=== PATIENT | female | born 1945 | race Caucasian/White ===

== ENCOUNTER 2024-12-24 18:21 | Emergency (ER) | payer BC, MEDICARE ==
[~2024-12-24] VITALS: Ht 149.9 cm; Wt 49.9 kg
--- NOTE | 2024-12-24 18:36 | NUR ---
RADHA LEAL AT TRIAGE ROOM ASSESSING PT DURING TRIAGE, MADE AWARE OF HIGH B/P 192/87, NO NEW ORDERS AT THIS TIME
[2024-12-24 18:50] LABS: BASOPHILS # (AUTO) 0.01 K/uL (0.00-0.20); BASOPHILS % (AUTO) 0.2 % (0.0-5.0); HEMATOCRIT 29.8 % (36-48); IMMATURE GRANULOCYTE ABSOLUTE 0.02 K/uL (0-1); LYMPHOCYTES # (AUTO) 1.3 K/uL (1.0-4.8); LYMPHOCYTES % (AUTO) 19.9 % (21.0-51.0); MEAN CORPUSCULAR HEMOGLOBIN 31.3 pg (27.0-33.0); MEAN CORPUSCULAR HGB CONC 33.9 g/dL (32.0-36.0); MEAN CORPUSCULAR VOLUME 92.3 fL (79-99); MONOCYTES # (AUTO) 0.5 K/uL (0.1-1.0); MONOCYTES % (AUTO) 8.4 % (3.0-13.0); NEUTROPHILS # (AUTO) 4.6 K/uL (1.8-7.7); NEUTROPHILS % (AUTO) 71.2 % (40.0-77.0); PLATELET COUNT (AUTO) 379 K/uL (130-400); RED BLOOD CELL COUNT(AUTO) 3.23 MIL/uL (4.00-5.50); RED CELL DISTRIBUTION WIDTH 12.4 % (11.0-15.5); WHITE BLOOD COUNT (AUTO) 6.4 K/uL (4.8-10.8)
[2024-12-24 19:03] LABS: CARBON DIOXIDE 29 mmol/L (21-32); CREATININE 0.8 mg/dL (0.5-1.0); GLOMERULAR FILTR. RATE CALC 75 mL/min (>90); GLUCOSE,RANDOM 94 mg/dL (70-105); SODIUM SERUM 128 mmol/L (136-145); UREA NITROGEN, BLOOD 17 mg/dL (7-18)
[2024-12-24 19:12] LABS: ALCOHOL, BLOOD < 3 mg/dL (0-10)
[2024-12-24 19:13] LABS: CHLORIDE 90 mmol/L (101-111)
[2024-12-24 19:58] VITALS: TEMP 98.5
[2024-12-24 20:01] LABS: APPEARANCE,URINE CLEAR (CLEAR); BILIRUBIN,URINE NEGATIVE (NEGATIVE); COLOR,URINE YELLOW (YELLOW); GLUCOSE, URINE (UA) NEGATIVE (NEGATIVE); KETONES,URINE 5 mg/dL (NEGATIVE); LEUKOCYTE ESTERASE ,URINE 25 Leu/uL (NEGATIVE); NITRATE,URINE NEGATIVE (NEGATIVE); OCCULT BLOOD,URINE NEGATIVE (NEGATIVE); PROTEIN,URINE 20 mg/dL (NEGATIVE); UROBILINOGEN,URINE 0.2 mg/dL (0.2-1.0)
[2024-12-24 20:05] LABS: ADD UA MICROSCOPIC YES
[2024-12-24 20:10] LABS: AMPHET/METH SCREEN,URINE NEGATIVE (NEGATIVE); BARBITURATE SCREEN, URINE NEGATIVE (NEGATIVE); BENZODIAZEPINES SCREEN,URINE NEGATIVE (NEGATIVE); CANNABINOID SCREEN,URINE NEGATIVE (NEGATIVE); COCAINE SCREEN,URINE NEGATIVE (NEGATIVE); OPIATE SCREEN,URINE NEGATIVE (NEGATIVE); PHENCYCLIDINE SCREEN,URINE NEGATIVE (NEGATIVE)
[2024-12-24 20:13] LABS: BACTERIA,URINE RARE /HPF (None Seen); MUCUS,URINE RARE LPF (None Seen); SQUAMOUS EPITHELIAL CELL,UR RARE /HPF (0-2)
--- NOTE | 2024-12-24 20:40 | EKG ---
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
[2024-12-24] MEDS: 0.9%NACL 1000ML 1,000 ML IV ONE (20:51)
[2024-12-24] MEDS: cefTRIAXone 1G VIAL IVPB STA (21:03)
[2024-12-24 21:29] VITALS: BP 142/68; PULSE 67; RESP 16; O2SAT 97
--- NOTE | 2024-12-24 21:37 | ERN ---
ED Note History of Present Illness Stated Complaint: MEDICAL DETOX Chief Complaint: Drug Abuse Time Seen by MD: 18:25 Time Seen by Midlevel: 18:25 Dictation: 79-year-old female presents to the ED for evaluation of possible medical detox. Patient reports seeing to detox from [facility] and alcohol use. Reports she has been taking 1 mg of lorazepam every day for the past 12 years and drinks very infrequently. Patient reports she was not had any child's or alcohol for the past three days. Denies any she has chest pain, shortness for breath, seizures, abdominal pain, nausea, vomiting, diarrhea. Patient requesting help for referral to detox program. Allergies: Coded Allergies: acetaminophen (Unverified Allergy, Unknown, 12/24/24) meperidine (Unverified Allergy, Unknown, 12/24/24) oxycodone (Unverified Allergy, Unknown, 12/24/24) Past Medical History Past Medical History: Hypertension Additional Past Medical Hx: FIBROMYALGIA, INSOMIA Surgical History: Other Surgical History Other: BACK SURGERY X4 RN Note Reviewed/Agreed w/PFSH: Yes Review of System Dictation CONSTITUTIONAL: Negative except for HPI HEAD/FACE: Negative except for HPI EENT: Negative except for HPI RESPIRATORY: Negative except for HPI GASTROINTESTINAL/ABDOMINAL: Negative except for HPI GENITOURINARY: Negative except for HPI MUSCULOSKELETAL: Negative except for HPI INTEGUMENTARY: Negative except for HPI NEUROLOGICAL/PSYCH: Negative except for HPI HEMATOLOGIC/LYMPHATIC: Negative except for HPI All Systems Negative, Except as noted above. 13 point review of systems assessed and all negative except for above. Review of Systems: was completed Initial Vital Sign VS Vital Signs Date Time Temp Pulse Resp B/P (MAP) Pulse Ox O2 Delivery O2 Flow Rate FiO2 12/24/24 18:25 98.6 79 16 192/87 99 Room Air 12/24/24 19:58 0 21 Physical Exam Dictation Vital Signs reviewed General Appearance: Alert, oriented x 3, no acute distress, well developed, nourished. Head and Face: non-traumatic. Eyes: PERRL, pink conjunctivas, eyelid no trauma, anterior chamber with arcus senilis. Ears: Pinnas intact and no signs of trauma or erythema ear canals clear and no discharge TM no erythema Nose: No discharge, no bleeding. Oropharynx: Mouth normal, tongue pink, pharynx clear,no erythema, tonsils no exudates, no abscesses noted, mucous membrane moist Neck: Supple, non-tender, no thyromegaly, no masses, no JVD, no bruits Breast:Deferred Chest:No tenderness, no crepitus, no paradoxical movement, no retractions Lungs:Clear, well-ventilated, symmetric, no rales, no wheezing, no rhonchi, no stridor, good breath sounds bilaterally Heart: Regular rate, regular rhythm, no murmur, no gallops Vascular: no peripheral edema, Abdomen: Soft, positive bowel sounds, nondistended, no guarding, nontender, no rebound, no masses no hepatomegaly, no splenomegaly, no Rene's sign, no hernias. Rectal: Deferred Genital: Deferred Neurological: Normal speech, motor function intact, sensory function intact Musculoskeletal: Neck nontender, full range of motion, back nontender, full range of motion, Extremities: nontender, full range of motion Skin: Color pink, dry, no turgor, no rash, no lacerations, no abrasions, no contusions. Lymphatic: Deferred Results (Laboratory/Radiology) Laboratory/Radiology Laboratory Tests Test 12/24/24 18:43 12/24/24 19:10 White Blood Count 6.4 K/uL (4.8-10.8) Red Blood Count 3.23 MIL/uL (4.00-5.50) L Hemoglobin 10.1 g/dL (12.0-16.0) L Hematocrit 29.8 % (36-48) L Mean Corpuscular Volume 92.3 fL (79-99) Mean Corpuscular Hemoglobin 31.3 pg (27.0-33.0) Mean Corpuscular Hemoglobin Concent 33.9 g/dL (32.0-36.0) Red Cell Distribution Width 12.4 % (11.0-15.5) Platelet Count 379 K/uL (130-400) Mean Platelet Volume 8.7 fL (7.5-10.5) Immature Granulocyte % (Auto) 0.3 % (0-1) Neutrophils (%) (Auto) 71.2 % (40.0-77.0) Lymphocytes (%) (Auto) 19.9 % (21.0-51.0) L Monocytes (%) (Auto) 8.4 % (3.0-13.0) Eosinophils (%) (Auto) 0.0 % (0.0-8.0) Basophils (%) (Auto) 0.2 % (0.0-5.0) Neutrophils # (Auto) 4.6 K/uL (1.8-7.7) Lymphocytes # (Auto) 1.3 K/uL (1.0-4.8) Monocytes # (Auto) 0.5 K/uL (0.1-1.0) Eosinophils # (Auto) 0.00 K/uL (0.00-0.70) Basophils # (Auto) 0.01 K/uL (0.00-0.20) Absolute Immature Granulocyte (auto 0.02 K/uL (0-1) Nucleated Red Blood Cells 0.0 % (0.0-0.19) Sodium Level 128 mmol/L (136-145) L Potassium Level 4.0 mmol/L (3.5-5.1) Chloride Level 90 mmol/L (101-111) *L Carbon Dioxide Level 29 mmol/L (21-32) Blood Urea Nitrogen 17 mg/dL (7-18) Creatinine 0.8 mg/dL (0.5-1.0) Glomerular Filtration Rate Calc 75 mL/min (>90) Random Glucose 94 mg/dL (70-105) Total Calcium 9.4 mg/dL (8.5-10.1) Troponin I High Sensitivity 5 ng/L (4-50) Serum Alcohol < 3 mg/dL (0-10) Urine Color YELLOW (YELLOW) Urine Appearance CLEAR (CLEAR) Urine pH 6.0 (5.0-8.0) Urine Specific [place] 1.025 (1.001-1.031) Urine Protein 20 mg/dL (NEGATIVE) H Urine Glucose (UA) NEGATIVE mg/dL (NEGATIVE) Urine Ketones 5 mg/dL (NEGATIVE) H Urine Occult Blood NEGATIVE (NEGATIVE) Urine Nitrate NEGATIVE (NEGATIVE) Urine Bilirubin NEGATIVE mg/dL (NEGATIVE) Urine Urobilinogen 0.2 mg/dL (0.2-1.0) Urine Leukocyte Esterase 25 [place]/uL (NEGATIVE) H Urine RBC 2-5 /HPF (0-1) H Urine WBC 2-5 /HPF (0-1) H Urine Squamous Epithelial Cells RARE /HPF (0-2) Urine Bacteria RARE /HPF (None Seen) Urine Hyaline Casts 2-5 /LPF (0-1 /LPF) H Urine Opiates Screen NEGATIVE (NEGATIVE) Urine Barbiturates Screen NEGATIVE (NEGATIVE) Urine Phencyclidine Screen NEGATIVE (NEGATIVE) Urine Amphetamines Screen NEGATIVE (NEGATIVE) Urine Benzodiazepines Screen NEGATIVE (NEGATIVE) Urine Cocaine Screen NEGATIVE (NEGATIVE) Urine Marijuana (THC) Screen NEGATIVE (NEGATIVE) Labs Reviewed?: Yes ED Course ED Course Orders Procedure Category Date Status Time Cbc With Differential LAB 12/24/24 Complete 18:32 Basic Metabolic Panel LAB 12/24/24 Complete 18:32 Urinalysis Profile LAB 12/24/24 Complete 18:32 Alcohol, Blood LAB 12/24/24 Complete 18:32 Drug Screen Urine LAB 12/24/24 Complete 18:32 12 Lead Ekg Tracing- EKG 12/24/24 Complete Technical 18:32 Troponin I High LAB 12/24/24 Complete Sensitivity 18:32 0.9%Nacl 1000ml (Ns PHA 12/24/24 Complete 1000ml) 20:30 Ceftriaxone 1g Vial PHA 12/24/24 Complete (Rocephine 1g Inj) 20:52 Current Medications Medications (Trade) Dose Ordered Sig/Michelle Route PRN Reason Start Time Stop Time Status Last Admin Dose Admin Ceftriaxone Sodium (ROCEphine 1G INJ) 1 gm ONCE STAT IVPB 12/24/24 20:52 12/24/24 20:53 DC 12/24/24 21:03 Sodium Chloride 1,000 ml @ 0 mls/hr ONCE ONCE IV 12/24/24 20:30 12/24/24 20:31 DC 12/24/24 20:51 Vital Signs Date Time Temp Pulse Resp B/P (MAP) Pulse Ox O2 Delivery O2 Flow Rate FiO2 12/24/24 19:58 98.4 69 16 165/73 98 Room Air* 0 21 12/24/24 18:25 98.6 79 16 192/87 99 Room Air Medical Decision Making MDM MDM: Differential diagnosis: Alcohol intoxication, alcohol withdrawal, benzo withdrawal, acute dehydration, hyponatremia There are no social concerns with this patient. Prescription drug management Prescriptions will include: Medical management and examination interpretation discussions were had by me with other qualified healthcare professionals as indicated for the patient's care. Patient came in alert and oriented x4. GCS 15. No chest pain, shortness of breath, abdominal pain. Patient was asymptomatic just requesting referral to a detox program. Hyponatremia with sodium of 128. Patient was given a bolus of NS here in the ER. UA consistent with UTI. Patient was given a g of Rocephin here in the ER. UDS negative for any drugs Serum alcohol less than three. Return calling [facility] and they said they could not admit due to no suicidal ideation, and gave us [facility] referral. Set to call between Friday and Friday 8:00 a.m. to 5:00 p.m. to the phone number [phone]. Discussed this with patient we will give it to her in our paperwork. Return precautions discussed with the patient. Patient verbalized understanding, agreed with plan, and all q uestions were answered at this time. DX & DISP Disposition: Discharge Departure Impression: Primary Impression: Acute dehydration Additional Impressions: Hyponatremia, Alcohol abuse Condition: Stable Additional Instructions: [facility] open M-F 8am-5pm. Call [phone] Referrals: SELF,REFERRAL (PCP) I have reviewed the case, and I agree with, Diagnosis and Plan RADHA SMITH Dec 24, 2024 21:37
== END 2024-12-24 22:59 | disposition home or self-care (01) ==
LOC: EDH 18:21
DX: E86.0 Dehydration (principal); E87.1 Hypo-osmolality and hyponatremia; F10.10 Alcohol abuse, uncomplicated; I10 Essential (primary) hypertension; M79.7 Fibromyalgia; Z88.5 Allergy status to narcotic agent; Z98.890 Other specified postprocedural states
CPT/HCPCS: 99284; 96365; 84484; 80048; 80305; 85025; 36415; 93005; 81001; J7030; J0696